=== PATIENT | male | born 1990 | race Two or more races ===

== ENCOUNTER 2019-12-31 08:05 | Emergency (ER) | payer OTHER ==
[~2019-12-31] VITALS: Ht 167.6 cm; Wt 64.5 kg
[2019-12-31] MEDS ORDERED: LORazepam 2 MG/ML VIAL IM ONE (08:15)
[2019-12-31] MEDS ORDERED: HALOPERIDOL LACTATE 5 MG/ML VIAL IM ONE (08:15)
[2019-12-31 09:03] LABS: BASOPHILS % (AUTO) 0.2 % (0.0-2.0); EOSINOPHILS % (AUTO) 0.2 % (1.0-6.0); HEMATOCRIT 35.8 % (41-53); HEMOGLOBIN 12.3 g/dL (13.5-17.5); LYMPHOCYTES # (AUTO) 1.3 K/uL (1.0-4.8); LYMPHOCYTES % (AUTO) 10.1 % (22.0-44.0); MEAN CORPUSCULAR HEMOGLOBIN 28.6 pg (26.0-34.0); MEAN CORPUSCULAR HGB CONC 34.4 G/dL (31.0-37.0); MEAN CORPUSCULAR VOLUME 83 fL (80-100); MONOCYTES # (AUTO) 0.8 K/uL (0.1-1.0); MONOCYTES % (AUTO) 6.3 % (2.0-9.0); NEUTROPHILS # (AUTO) 10.3 K/uL (1.8-7.7); NEUTROPHILS % (AUTO) 83.2 % (40.0-70.0); PLATELET COUNT (AUTO) 233 K/uL (150-450); RED BLOOD CELL COUNT(AUTO) 4.32 MIL/uL (4.50-5.90); RED CELL DISTRIBUTION WIDTH 13.2 % (11.5-14.5)
[2019-12-31 09:15] LABS: ANION GAP 9 mmol/L (8-16); CALCIUM, TOTAL 8.5 mg/dL (8.8-10.5); CARBON DIOXIDE 25 mmol/L (22-29); CHLORIDE 103 mmol/L (98-107); CREATININE 1.22 mg/dL (0.60-1.30); GLOMERULAR FILTR. RATE CALC 52 mL/min (>60); GLUCOSE,RANDOM 87 mg/dL (70-110); POTASSIUM 3.6 mmol/L (3.5-5.1); SODIUM SERUM 137 mmol/L (136-145); UREA NITROGEN, BLOOD 24 mg/dL (7-18)
[2019-12-31 09:22] LABS: ALANINE AMINOTRANSFERASE 32 U/L (12-78); ALBUMIN 3.7 g/dL (3.4-5.0); ALKALINE PHOSPHATASE 72 U/L (46-116); ASPARTATE AMINOTRANSFERASE 31 U/L (15-37); BILIRUBIN,TOTAL 1.4 mg/dL (0.1-1.0); TOTAL PROTEIN, SERUM 6.6 g/dL (6.4-8.2)
[2019-12-31 10:55] LABS: AMPHET/METH SCREEN,URINE POSITIVE (NEGATIVE); BARBITURATE SCREEN, URINE NEGATIVE (NEGATIVE); BENZODIAZEPINES SCREEN,URINE NEGATIVE (NEGATIVE); CANNABINOID SCREEN,URINE POSITIVE (NEGATIVE); COCAINE SCREEN,URINE NEGATIVE (NEGATIVE); METHADONE SCREEN, URINE NEGATIVE (NEGATIVE); OPIATE SCREEN,URINE NEGATIVE (NEGATIVE)
[2019-12-31 10:56] LABS: PHENCYCLIDINE SCREEN,URINE NEGATIVE (NEGATIVE)
[2019-12-31 15:12] VITALS: BP 119/85
== END 2019-12-31 15:25 | disposition home or self-care (01) ==
LOC: EMS 08:07 → EDBD 08:07 → EMS 15:25
DX: F15.10 Other stimulant abuse, uncomplicated (principal); F17.210 Nicotine dependence, cigarettes, uncomplicated; Z20.828 Contact with and (suspected) exposure to other viral communicable diseases
CPT/HCPCS: 36415; 80053; 80307; 85025; 87426; 96372; 99291; G0480; J1630; J2060

== ENCOUNTER 2022-04-03 10:48 | Emergency (ER) | payer OTHER ==
[~2022-04-03] VITALS: Ht 177.8 cm; Wt 77.3 kg
[~2022-04-03 10:48] MED LIST: GABA-529 PO; ZIPR40CA38 PO
[2022-04-03 11:39] VITALS: BP 134/84
== END 2022-04-03 11:39 | disposition home or self-care (01) ==
LOC: EMS 10:55
DX: T18.5XXA Foreign body in anus and rectum, initial encounter (principal); F17.210 Nicotine dependence, cigarettes, uncomplicated
CPT/HCPCS: 99283

== ENCOUNTER 2024-02-18 15:32 | Emergency (ER) | payer OTHER ==
[~2024-02-18] VITALS: Ht 177.8 cm; Wt 85.0 kg
[2024-02-18 15:40] VITALS: TEMP 98.3
[2024-02-18] MEDS ORDERED: OLAN5TAB77 PO (15:51)
[2024-02-18] MEDS: SODIUM CHLORIDE 0.9% 1,000 ML IV ONE (16:14)
[2024-02-18 16:22] LABS: BASOPHILS % (AUTO) 0.4 % (0.0-2.0); EOSINOPHILS % (AUTO) 0 % (1.0-6.0); HEMATOCRIT 44.9 % (41-53); HEMOGLOBIN 15.1 g/dL (13.5-17.5); LYMPHOCYTES # (AUTO) 1.3 K/uL (1.0-4.8); LYMPHOCYTES % (AUTO) 13.1 % (22.0-44.0); MEAN CORPUSCULAR HEMOGLOBIN 27.6 pg (26.0-34.0); MEAN CORPUSCULAR HGB CONC 33.5 G/dL (31.0-37.0); MEAN CORPUSCULAR VOLUME 82 fL (80-100); MONOCYTES # (AUTO) 1.1 K/uL (0.1-1.0); MONOCYTES % (AUTO) 10.9 % (2.0-9.0); NEUTROPHILS # (AUTO) 7.5 K/uL (1.8-7.7); NEUTROPHILS % (AUTO) 75.6 % (40.0-70.0); PLATELET COUNT (AUTO) 342 K/uL (150-450); RED BLOOD CELL COUNT(AUTO) 5.46 MIL/uL (4.50-5.90); RED CELL DISTRIBUTION WIDTH 13.7 % (11.5-14.5)
[2024-02-18] MEDS: LORazepam 2 MG/ML VIAL IVP ONE (16:22)
[2024-02-18 16:31] LABS: CALCIUM, TOTAL 9.8 mg/dL (8.8-10.5); CREATININE 1.76 mg/dL (0.60-1.30); POTASSIUM 3.6 mmol/L (3.5-5.1)
[2024-02-18 16:36] LABS: ALBUMIN 4.3 g/dL (3.4-5.0); BILIRUBIN,TOTAL 1.5 mg/dL (0.1-1.0); TOTAL PROTEIN, SERUM 7.9 g/dL (6.4-8.2)
[2024-02-18 16:38] LABS: TROPONIN I-HIGH SENSITIVITY 13 ng/L (<76)
[2024-02-18 17:46] VITALS: BP 154/77; PULSE 86; RESP 15; O2SAT 98
== END 2024-02-18 18:11 | disposition home or self-care (01) ==
LOC: EMS 15:32
DX: F15.90 Other stimulant use, unspecified, uncomplicated (principal); R00.0 Tachycardia, unspecified; F12.90 Cannabis use, unspecified, uncomplicated; F17.210 Nicotine dependence, cigarettes, uncomplicated
CPT/HCPCS: 99284; 96374; 96361; 80053; 82550; 84484; 85025; 36415; 93005; J2060; J7030

== ENCOUNTER 2024-10-19 18:53 | Inpatient (IN) | payer MEDICAID ==
[~2024-10-19] VITALS: Ht 167.6 cm; Wt 73.5 kg
[~2024-10-19 18:53] MED LIST changes: +BENZ2TAB84 PO; -GABA-529 PO; +RISP3TAB77 PO; -ZIPR40CA38 PO
[2024-10-19 19:10] VITALS: BP 125/69; PULSE 98; RESP 18; TEMP 98.2; O2SAT 100
[2024-10-19 21:30] LABS: GLUCOMETER DEV NAME(LOC) POC.BV; POC SARS-COV2 AG, FIA NEGATIVE (NEGATIVE)
[2024-10-19] MEDS ORDERED: PROMETHAZINE HCL 25 MG TABLET PO PRN (21:30)
[2024-10-19] MEDS ORDERED: OLANZapine 5 MG RAPDIS TABLET PO PRN (21:30)
[2024-10-19] MEDS ORDERED: MAGNESIUM HYDROXIDE SUSPENSION 30 ML UDCUP PO PRN (21:30)
[2024-10-19] MEDS ORDERED: GuaiFENesin/D-METHORPHAN [SUGAR-FREE] 200-20MG/10 ML SYRUP UDCUP PO PRN (21:30)
[2024-10-19] MEDS ORDERED: LOPERAMIDE HCL 2 MG CAPSULE PO PRN (21:30)
[2024-10-19] MEDS ORDERED: MAG HYDROX/ALUMINUM HYD/SIMETH ES 30 ML SUSPENSION UDCUP PO PRN (21:30)
[2024-10-19 22:00] VITALS: BP 110/77; PULSE 98; RESP 15; TEMP 97.8; O2SAT 98
[2024-10-19] MEDS: DIVALPROEX SODIUM 500 MG ER TABLET PO ONE (22:30)
[2024-10-19] MEDS: OLANZapine 5 MG RAPDIS TABLET PO ONE (22:31)
[2024-10-20] MEDS ORDERED: PNEUMOCOCCAL VACCINE POLYVALENT 0.5 ML SYRINGE [PPSV23] IM. ONE (03:30)
[2024-10-20 06:56] LABS: GLUCOMETER DEV NAME(LOC) BV2S.; GLUCOSE,POINT OF CARE 108 MG/DL (70-110)
[2024-10-20 08:25] LABS: PLATELET COUNT (AUTO) 296 K/uL (150-450); RED BLOOD CELL COUNT(AUTO) 5.09 MIL/uL (4.50-5.90); RED CELL DISTRIBUTION WIDTH 13.8 % (11.5-14.5); WHITE BLOOD COUNT (AUTO) 5.5 K/uL (4.5-11.0)
[2024-10-20 08:54] LABS: ASPARTATE AMINOTRANSFERASE 10 U/L (15-37); CALCIUM, TOTAL 8.6 mg/dL (8.8-10.5); CHOL/HDL RATIO 3.0 (4.2-7.3); CREATININE 0.65 mg/dL (0.60-1.30); GLOMERULAR FILTR. RATE CALC > 60 mL/min (>60); GLUCOSE,RANDOM 96 mg/dL (70-110); LDL CHOL (CALC.) 88 mg/dL (0-130); SODIUM SERUM 143 mmol/L (136-145); TOTAL PROTEIN, SERUM 6.2 g/dL (6.4-8.2); UREA NITROGEN, BLOOD 16 mg/dL (7-18)
[2024-10-20] MEDS: NALTREXONE HCL 50 MG TABLET PO SCH (08:58)
[2024-10-20] MEDS: MULTIVITAMINS WITH MINERALS, THERAPEUTIC TABLET PO SCH (08:58)
[2024-10-20] MEDS: FOLIC ACID 1 MG TABLET PO SCH (08:58)
[2024-10-20] MEDS: THIAMINE 100 MG TABLET PO SCH (08:58)
[2024-10-20] MEDS: PALIPERIDONE PALMITATE 234 MG/1.5 ML SYRINGE IM ONE (09:00)
[2024-10-20 10:09] VITALS: BP 118/73; PULSE 89; RESP 18; TEMP 98; O2SAT 99
[2024-10-20] MEDS: DIVALPROEX SODIUM 500 MG ER TABLET PO SCH (17:17)
[2024-10-20 18:00] VITALS: RESP 17; TEMP 98.1; O2SAT 98
[2024-10-20] MEDS: MELATONIN 5 MG TABLET PO SCH (21:00)
[2024-10-20] MEDS: OLANZapine 5 MG RAPDIS TABLET PO SCH (21:00)
[2024-10-20] MEDS: ZOLPIDEM TARTRATE 10 MG TABLET PO PRN (23:20)
[2024-10-21 04:07] LABS: HEPATITIS C AB (EIA) Non Reactive (Non Reactive)
[2024-10-21 08:34] VITALS: BP 139/74; PULSE 98; RESP 18; TEMP 99.1; O2SAT 99
[2024-10-21 20:21] VITALS: BP 121/65; PULSE 84; RESP 19; TEMP 98.3; O2SAT 100
[2024-10-22 08:40] VITALS: BP 110/62; PULSE 63; RESP 18; TEMP 98; O2SAT 99
[2024-10-22 20:22] VITALS: BP 124/81; PULSE 89; RESP 18; TEMP 97.9; O2SAT 100
[2024-10-22] MEDS: OLANZapine 5 MG RAPDIS TABLET PO SCH (20:44)
[2024-10-23 08:00] VITALS: RESP 18
[2024-10-24 08:15] VITALS: BP 112/61; PULSE 67; RESP 18; TEMP 97.7; O2SAT 99
[2024-10-24 08:44] LABS: PH,URINE DRUG SCREEN 6.5 (5.0-8.0)
[2024-10-24 08:57] LABS: ALCOHOL, URINE DRUG SCREEN NEGATIVE (NEGATIVE); AMPHET/METH SCREEN,URINE NEGATIVE (NEGATIVE); BARBITURATE SCREEN, URINE NEGATIVE (NEGATIVE); CANNABINOID SCREEN,URINE NEGATIVE (NEGATIVE); COCAINE SCREEN,URINE NEGATIVE (NEGATIVE); METHADONE SCREEN, URINE NEGATIVE (NEGATIVE)
[2024-10-24] MEDS ORDERED: PALIPERIDONE PALMITATE 156 MG/ML SYRINGE IM ONE (09:00)
[2024-10-24] MEDS: TUBERCULIN, PURIFIED PROTEIN DERIVATIVE 5 TU/0.1 ML SYRINGE ID ONE (17:45)
[2024-10-24 20:18] VITALS: RESP 18
[2024-10-25 08:10] VITALS: RESP 17
[2024-10-25 20:27] VITALS: BP 130/68; PULSE 77; RESP 18; TEMP 98.2; O2SAT 100
[2024-10-25] MEDS: OLANZapine 10 MG RAPDIS TABLET PO SCH (21:22)
[2024-10-25] MEDS: NICOTINE 21 MG/24 HOUR PATCH TD SCH (21:23)
[2024-10-26 08:50] VITALS: BP 99/63; PULSE 79; RESP 17; TEMP 97.5; O2SAT 99
[2024-10-26] MEDS ORDERED: NICOTINE 21 MG/24 HOUR PATCH TD SCH (09:00)
[2024-10-26 20:15] VITALS: BP 129/84; PULSE 102; RESP 18; TEMP 98.1; O2SAT 98
[2024-10-27 08:43] VITALS: BP 120/62; PULSE 78; RESP 17; TEMP 98; O2SAT 99
[2024-10-27 19:25] VITALS: TEMP 100.4
[2024-10-27] MEDS: ACETAMINOPHEN 325 MG TABLET PO PRN (20:14)
[2024-10-27 20:27] VITALS: BP 135/72; PULSE 89; RESP 18; TEMP 102; O2SAT 97
[2024-10-28 03:34] VITALS: BP 126/78; PULSE 110; RESP 17; TEMP 100; O2SAT 96
[2024-10-28 08:18] VITALS: BP 119/63; PULSE 85; RESP 18; TEMP 99.5; O2SAT 99
[2024-10-28 20:30] VITALS: BP 116/87; PULSE 87; RESP 17; TEMP 99.9; O2SAT 98
[2024-10-29 08:32] VITALS: RESP 18
[2024-10-29] MEDS ORDERED: MELA5TAB40 PO ×2 (15:22→22:45)
[2024-10-29] MEDS ORDERED: DIVA-153 PO ×2 (15:22→22:45)
[2024-10-29] MEDS ORDERED: FLUO-418 PO ×2 (15:22→22:45)
[2024-10-29] MEDS ORDERED: NALT50TA33 PO (15:22)
[2024-10-29] MEDS ORDERED: OLAN10TA26 PO ×2 (15:22→22:45)
[2024-10-29 20:16] VITALS: BP 115/70; PULSE 81; RESP 17; TEMP 98.1; O2SAT 100
[2024-10-30 08:15] VITALS: BP 114/86; PULSE 101; RESP 18; TEMP 98.4; O2SAT 98
== END 2024-10-30 14:32 | disposition home or self-care (01) | DRG 750 ==
LOC: B2S 21:46
PROVIDERS: ADMIT Psychiatry & Neurology Psychiatry; ATTEND Psychiatry & Neurology Psychiatry
PROC: GZHZZZZ Group Psychotherapy (ICD-10-PCS; principal; 2024-10-19)
PROC: GZ51ZZZ Individual Psychotherapy, Behavioral (ICD-10-PCS; 2024-10-19)
DX: F25.9 Schizoaffective disorder, unspecified (principal); G93.41 Metabolic encephalopathy; R45.851 Suicidal ideations; Z59.02 Unsheltered homelessness; Z20.822 Contact with and (suspected) exposure to COVID-19; E11.9 Type 2 diabetes mellitus without complications; F17.200 Nicotine dependence, unspecified, uncomplicated; J44.9 Chronic obstructive pulmonary disease, unspecified; Z91.199 Patient's noncompliance with other medical treatment and regimen due to unspecified reason
CPT/HCPCS: 71046; 80053; 80061; 80164; 80307; 82962; 83036; 84439; 84443; 85025; 86592; 86803; 87340; 36415-L1; 36415-TC